=== PATIENT | male | born 1970 | race Caucasian/White ===

== ENCOUNTER 2023-03-23 15:43 | Emergency (ER) | payer MEDICAID ==
[~2023-03-23] VITALS: Ht 154.9 cm; Wt 58.1 kg
[2023-03-23] MEDS ORDERED: CEFTRIAXONE 1 G VIAL ONE (16:29)
[2023-03-23] MEDS ORDERED: DOXYCYCLINE HYCLATE (100 MG) 100 MG TABLET ONE (16:30)
[2023-03-23] MEDS ORDERED: CEFTRIAXONE 1 G VIAL IM ONE (16:30)
[2023-03-23] MEDS ORDERED: PENICILLIN G BENZATHINE 2.4 MMU/4 ML ML IM ONE ×2 (16:30)
[2023-03-23] MEDS ORDERED: DOXYCYCLINE HYCLATE (100 MG) 100 MG TABLET PO ONE (16:30)
[2023-03-23] MEDS ORDERED: LIDOCAINE /MPF 1% VIAL 5 ML VIAL ONE (16:33)
[2023-03-23] MEDS ORDERED: DOXY-226 PO (17:04)
[2023-03-23 17:19] VITALS: BP 150/86; TEMP 98.1; O2SAT 95
[2023-03-25 06:07] LABS: RAPID PLASMA REAGIN QUAL. Non Reactive (Non Reactive)
== END 2023-03-23 17:20 | disposition home or self-care (01) ==
LOC: ER 15:55
DX: A64 Unspecified sexually transmitted disease (principal); Z60.2 Problems related to living alone
CPT/HCPCS: 99284; 86592; 86593; 96372 ×2; 36415; J0558; J0696; J3490